=== PATIENT | male | born 1995 | race American Indian/Alaskan Native ===

== ENCOUNTER 2020-03-10 19:18 | Emergency (ER) | payer OTHER ==
[2020-03-10 21:33] VITALS: BP 119/56
[2020-03-11] MEDS ORDERED: IBUPROFEN 600 MG TAB PO ONE (01:54)
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
== END 2020-03-11 03:15 | disposition home or self-care (01) ==
LOC: ED 19:18
DX: S39.012A Strain of muscle, fascia and tendon of lower back, initial encounter (principal); M25.561 Pain in right knee; F12.10 Cannabis abuse, uncomplicated; Z79.899 Other long term (current) drug therapy; V49.49XA Driver injured in collision with other motor vehicles in traffic accident, initial encounter; Y93.89 Activity, other specified; Y92.488 Other paved roadways as the place of occurrence of the external cause; Y99.8 Other external cause status
CPT/HCPCS: 72100; 99283